=== PATIENT | female | born 1980 | race Caucasian/White ===

== ENCOUNTER → 2023-03-01 | Outpatient (CLI) | payer OTHER, SELFPAY ==
[2023-03-01 17:58] LABS: Absolute Lymphocyte Count 2.17 X10^3/uL (0.83-4.51); Absolute Neutrophil Count 3.8 X10^3/uL (2.0-7.7); Basophil# 0.07 X10^3/uL; Eosinophil# 0.18 X10^3/uL; Eosinophils% 2.7 % (0-5); Hematocrit 41.1 % (37-47); Hemoglobin 13.8 g/dL (12.0-15.0); Lymphocyte # 2.17 X10^3/ul (0.83-4.51); Lymphocyte % 32.4 % (19-41); Mean Corp Hgb Conc 33.6 g/dL (32-36); Mean Corpuscular Hgb 31.4 pg (27.0-32.0); Mean Corpuscular Volume 93.6 fL (81-99); Mean Platelet Vol. 9.6 fl (6.2-12.0); Monocyte# 0.41 X10^3/uL; Monocyte% 6.1 % (0-10); NRBC Flagged by Analyzer 0 % (0-5); Neutrophil # 3.84 X10^3/uL (2.7-7.7); Neutrophil % 57.5 % (47-70); Platelet Count 253 K/mm3 (150-450); RBC Distribution Width CV 11.9 % (11.6-14.6); RBC Distribution Width SD 41.3 fl (35.1-43.9); Red Blood Count 4.39 M/mm3 (4.2-5.4); White Blood Count 6.7 K/mm3 (4.4-11.0)
[2023-03-01 18:24] LABS: Vitamin B12 509 pg/mL (211-911)
[2023-03-01 18:47] LABS: ALB/GLOB Ratio 1.3 RATIO (0.9-2.4); AST(SGOT) 20 U/L (15-37); Alanine Aminotransfer ALT/SGPT 33 U/L (13-56); Albumin, Serum 4.1 g/dL (3.2-5.0); Alkaline Phosphatase 65 U/L (45-117); Anion Gap 7 (5-15); BUN 13 mg/dL (7-18); BUN/Creat Ratio 14.1 RATIO (10-20); Calcium,Total 9.3 mg/dL (8.5-10.1); Chloride 108 mmol/L (98-107); Creatinine, Serum 0.92 mg/dL (0.55-1.02); EST Glomerular Filtration Rate 70 mL/min (>60); Est Glom Filt Rate - Afr Amer 85 mL/min (>60); Ferritin 178 ng/mL (8-252); Globulin 3.1 g/dL (2.2-4.2); Glucose 67 mg/dL (74-106); Potassium 3.6 mmol/L (3.5-5.1); Protein, Total 7.2 g/dL (6.4-8.2); Sodium Level 140 mmol/L (136-145); Thyroid Stim Hormone (TSH) 0.76 uIU/mL (0.358-3.74); Troponin-I HS < 3 pg/mL (3.0-54.0)
== END | disposition home or self-care (01) ==
LOC: MFPLAB 16:47
PROVIDERS: PCP Family Medicine; Visit Provider Family Medicine
DX: R42 Dizziness and giddiness (principal)
CPT/HCPCS: 36415; 80053; 82607; 82728; 84443; 84484; 85025

== ENCOUNTER → 2023-03-12 | Outpatient (CLI) | payer SELFPAY, OTHER ==
--- NOTE | 2023-03-12 13:33 | STE_ITS ---
Reason For Study: Lightheaded; Chest Pain; Dyspnea Stress Results Protocol: Jose Luis Protocol Maximum Predicted HR: 175 bpm Target HR: 149 bpm % Maximum Predicted HR: 98 % DurationHeart Rate Stage (mm:ss) (bpm) BP Comment Baseline 80 110/78No Chest Pain Jose Luis Protocol Stage I 3:00 151 118/74No Chest Pain Jose Luis Protocol Stage II 3:00 171 130/72Mild Chest Tightness; Panting, Lightheaded Recovery 100 112/80Chest Pain Resolved Within 5 Min Stress Duration: 6:00 mm:ss Maximum Stress HR: 171 bpm METS: 7 Baseline Echocardiogram Findings Stress Echo Wall motion Data Resting WM Intermediate WM Stress WM ECHO/Stress Test Echo w/o Contrast Interpretation Summary Exercise stress echo 43-year-old lady with a history of chest pain. Stress protocol: Resting EKG demonstrates normal sinus rhythm with a rate of 81 bpm normal inter vals are noted resting blood pressure is 110/78 mmHg. The patient exercised according to regul ar Jose Luis protocol for a total duration of 6 minutes completing stage II of the Jose Luis protocol. The ma ximum heart rate attained was 171 bpm which was 97% of max impacted heart rate the maximum workl oad was 7 metabolic equivalents. Patient attained 97% of maximum predicted heart rate. At rest ther e were no ST or T wave changes noted suggest ischemia at peak exercise there was approximately [address] depression noted in leads II, III and aVF and V6 which was suggestive and betty rning for angina. Patient also experienced mild chest tightness at peak exercise. Chest discomfor t resolved on termination of the exercise. EKG changes returned to normal and baseline. The p eak blood pressure was 130/72 with a rate-pressure product of 22,200. Stress echocardiographic images. The resting echocardiogram demonstrated preserved left ventricular systolic fun ction. Estimated ejection fraction at rest was 55%. At peak exercise there was thickening of all wallsExcept for the mid and basal, except for the mid and basal inferior wall with mild hypokinesis worsening with exertion. Ischemia cannot be completely excluded. Conclusion: Exercise stress echo with EKG changes suggestive of ischemia at a moderate work load. Stress echocardiographic images suggestive of mid inferior ischemia. Ordering Physician: Francesca Giraldo Referring Physician: Francesca Giraldo Performed By: Justine Huddleston RDCS
== END | disposition home or self-care (01) ==
LOC: CVS 13:32
PROVIDERS: PCP Family Medicine; Referring Provider Family Medicine; Visit Provider Family Medicine
DX: R94.31 Abnormal electrocardiogram [ECG] [EKG] (principal)
CPT/HCPCS: 93017; 93350

== ENCOUNTER 2023-03-25 06:43 | Day surgery (SDC) | payer SELFPAY, OTHER ==
[2023-03-24 08:21] VITALS: BMI 32.4
[2023-03-25 07:14] LABS: Internal QC Validated? YES +Cl - CLEAR BKGD; Pregnancy, Urine Negative Negative
--- NOTE | 2023-03-25 08:35 | CL.D_ITS ---
Patient Name: DAREN PLATA Study Date: 03/25/2023 Performing: Sean Osborne MD Ht: 65 inches 165.1 cm : 1980 Wt: 195 lbs 88.45 kg Age: 43 Gender: female BSA: 1.96 PROCEDURE(S) PERFORMED DC01-(04019)LHC/COR/LV CLINICAL PROFILE AND INDICATIONS Indications: Suspected CAD Heart Failure: None Stress/Imaging Stress Echocardiogram: Yes Result: Positive Intermediate RiskStress Echocardiogram: Positive Intermediate Risk CAD Presentations: Symptom unlikely to be ischemic. CONCLUSIONS Normal coronary arteries Normal LV size, wall motion,and systolic function RECOMMENDATIONS Medical therapy DESCRIPTION OF PROCEDURE The patient arrived to the procedure lab. The risks and benefits of the procedure as well as a full description of our services here and current unavailability of surgical backup were fully explained to the patient and/or their significant other prior to the catheterization. The Timeout was completed, verifying the correct patient and procedure. The patient's procedural site was prepped and draped in the usual fashion. Local anesthetic was given subcutaneously to right radial region with Lidocaine 2%. Using a modified Seldinger technique, arterial access was obtained via the right radial artery, a 6Fr sheath was inserted. Right Coronary Artery selective angiography was then performed in multiple views using a 5 Fr. 4.0 Sterling catheter. Left Coronary Artery selective angiography was performed in multiple views using a 5 Fr. 4.0 Sterling catheter. Left Ventriculography was performed in CORTES projection using a 5 Fr. Pigtail catheter. Simultaneous pressures were then recorded.The arterial sheath was pulled and a TR Band was applied for hemostasis. 10cc air inserted CORONARY ANGIOGRAPHY DOMINANCE: Right Dominant LEFT HEART ASSESSMENT Left Ventricular Ejection Fraction: by LV Gram 60 % Normal LV wall motion Normal Left Ventricular systolic function LEFT MAIN: Angiographically normal CIRCUMFLEX ARTERY: Angiographically normal RIGHT CORONARY ARTERY: No significant disease noted COMPLICATIONS No Complications PROCEDURE MEDICATIONS Fentanyl 25 mcg IV Versed 0.5 mg IV Fentanyl 25 mcg IV Versed 0.5 mg IV Versed 1 mg IV Oxygen: 2 L/min via nasal cannula Baby Aspirin (81mg) 1 Tabs PO @ 03/25/2023 08:20:01 Heparin given IA 03/25/2023 08:20:15 Verapamil 2.5mg, Ntg 100mcgs, 3000 units of Heparin given IA 03/25/2023 08:20:15 SUMMARY OF HEMODYNAMIC DATA Time AIR REST ECG 07:06:03 AO 100/65 (81) SA 08:21:15 LV 90/-1, 8 08:26:27 LV 91/2, 10 08:26:34 LV 91/4, 13 08:27:04 LVp 93/5, 14 08:27:07 Signed By Sean Osborne MD On 03/25/2023 08:34:48 Sean Osborne MD
== END 2023-03-25 10:15 | disposition home or self-care (01) ==
PROVIDERS: PCP Family Medicine; Visit Provider Internal Medicine Cardiovascular Disease
DX: R94.39 Abnormal result of other cardiovascular function study (principal); M06.9 Rheumatoid arthritis, unspecified; R42 Dizziness and giddiness; E07.9 Disorder of thyroid, unspecified; Z79.82 Long term (current) use of aspirin; Z79.899 Other long term (current) drug therapy
CPT/HCPCS: 81025; 93458; 99152; 99153; J7040; C1769; C1894; Q9967